=== PATIENT | female | born 1990 | race Caucasian/White ===

== ENCOUNTER 2016-09-29 16:08 | Outpatient (CLI) | payer MEDICAID ==
[~2016-09-29] VITALS: Ht 162.6 cm; Wt 111.1 kg
[~2016-09-29 16:08] MED LIST: PREN-39 PO
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
[2016-09-29 18:25] LABS: ADD SCAN DIFF NO
[2016-09-29 18:27] LABS: ABNORMAL IP MESSAGE 1; EOSINOPHILS # 0.1 10^3/ul (0.0-0.5); EOSINOPHILS % 0.5 % (0.0-7.0); HEMATOCRIT 29.4 % (37.0-47.0); HEMOGLOBIN 9.1 g/dl (12.0-16.0); LYMPHOCYTES % 20.6 % (15.0-51.0); MEAN CORPUSCULAR VOLUME 80.8 fl (82.0-101.0); MEAN PLATELET VOLUME 13.1 fl (7.4-10.4); MONOCYTE # 0.6 10^3/ul (0.3-0.9); MONOCYTES % 5.7 % (0.0-11.0); NEUTROPHILS % 72.6 % (39.0-77.0); PLATELET COUNT 171 10^3/UL (140-415); RED BLOOD COUNT 3.64 10^6/ul (4.20-5.40); RED CELL DISTRIBUTION WIDTH 13.4 % (11.5-14.5); WHITE BLOOD COUNT 9.6 10^3/ul (4.8-10.8)
== END 2016-09-29 19:45 | disposition home or self-care (01) ==
LOC: OBT 16:08 → L-D 16:09 → OBT 19:45
PROVIDERS: ATTEND Obstetrics & Gynecology
DX: O36.8130 Decreased fetal movements, third trimester, not applicable or unspecified (principal); S39.81XA Other specified injuries of abdomen, initial encounter; X95.01XA Assault by airgun discharge, initial encounter; Z3A.31 31 weeks gestation of pregnancy
CPT/HCPCS: 36415; 76818; 85025; 86850; 86900; 86901; Z7500; G0463

== ENCOUNTER 2016-10-11 13:33 | Outpatient (CLI) | payer MEDICAID ==
[~2016-10-11] VITALS: Ht 162.6 cm; Wt 109.9 kg
[2016-10-11 14:18] VITALS: BP 117/62; PULSE 109; RESP 18
--- NOTE | 2016-10-11 14:45 | RADRPT ---
PROCEDURE: US OB biophysical profile. CLINICAL INDICATION: labor TECHNIQUE: Multiple sonographic images of the pelvis were obtained. The images were reviewed on a PACS workstation. COMPARISON: Obstetrical ultrasound from 09/29/2016 FINDINGS: There is a single viable intrauterine gestation. Cardiac activity is present with 139 beats per min [place]. There is a vertex presentation. The placenta is posterior and fundal. There is no evidence of placental abruption. There is a normal amount of amniotic fluid with an AURORA = 14.1 cm. Biophysical profile: movement 2/2 tone 2/2. breathing 2/2 AUR[place]A 2/2 Total 12/09 RPTAT: AA . IMPRESSION: Normal biophysical profile. Physician Arley Date Time Electronically viewed and signed by Physician Arley on 10/11/2016 14:44 RA/
--- NOTE | 2016-10-11 16:47 | PN ---
Triage Information Weeks of Gestation Patient is 4 para 3 at 34 weeks of gestation presents with leaking fluid : 4 Para: 3 Diabetes: none Hypertention: none Additional information Reports positive movement, no vaginal bleeding, no contractions Objective Vital Signs Date Time Temp Pulse Resp B/P Pulse Ox O2 Delivery O2 Flow Rate FiO2 10/11/16 14:18 98.4 109 18 117/62 96 Room Air Exam heart rate reactive [place] none Results/Medications Results 24 hrs Laboratory Tests Test 10/11/16 14:05 Membranes Rupture NEGATIVE Imaging Results PROCEDURE: US OB biophysical profile. CLINICAL INDICATION: labor TECHNIQUE: Multiple sonographic images of the pelvis were obtained. The images were reviewed on a PACS workstation. COMPARISON: Obstetrical ultrasound from 09/29/2016 FINDINGS: There is a single viable intrauterine gestation. Cardiac activity is present with 139 beats per minute. There is a vertex presentation. The placenta is posterior and fundal. There is no evidence of placental abruption. There is a normal amount of amniotic fluid with an AURORA = 14.1 cm. Biophysical profile: movement 2/2 tone 2/2. breathing 2/2 [place]A 2/2 Total 12/09 RPTAT: AA . IMPRESSION: Normal biophysical profile. 

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
== END 2016-10-11 16:28 | disposition home or self-care (01) ==
LOC: L-D 13:33 → OBT 13:33
PROVIDERS: ATTEND Obstetrics & Gynecology
DX: O42.913 Preterm premature rupture of membranes, unspecified as to length of time between rupture and onset of labor, third trimester (principal); Z3A.35 35 weeks gestation of pregnancy
CPT/HCPCS: 76818; 84112; Z7500; G0463

== ENCOUNTER 2016-11-07 11:51 | Outpatient (CLI) | payer MEDICAID ==
[~2016-11-07] VITALS: Ht 162.6 cm; Wt 112.4 kg
[2016-11-07 12:04] VITALS: Ht 162.6 cm; Wt 112.4 kg
[2016-11-07 12:08] VITALS: BP 126/65; PULSE 94; RESP 18
--- NOTE | 2016-11-07 12:58 | RADRPT ---
PROCEDURE: US OB biophysical profile. CLINICAL INDICATION: evaluation, decreased movement TECHNIQUE: Multiple sonographic images of the pelvis were obtained. The images were reviewed on a PACS workstation. COMPARISON: Obstetrical ultrasound from 10/11/2016 FINDINGS: There is a single viable intrauterine gestation. Cardiac activity is present with 143 beats per min [place]. There is a vertex presentation. The placenta is posterior. There is no evidence of placental abruption. There is a normal amount of amniotic fluid with an AURORA = 15.8 cm. Biophysical profile: movement 2/2 tone 2/2. breathing 2/2 [place] 2/2 Total 12/09 RPTAT: AA . IMPRESSION: Normal biophysical profile. Normal AUR[place]A. Physician Arley Date Time Electronically viewed and signed by Physician Arley on 11/07/2016 12:57 /
--- NOTE | 2016-11-07 14:33 | PN ---
Triage Information Date/Time November 07, 2016 at 1425 Weeks of Gestation 37 weeks 6 days : 4 Para: 3 Diabetes: none Hypertention: none Objective Vital Signs Date Time Temp Pulse Resp B/P Pulse Ox O2 Delivery O2 Flow Rate FiO2 11/07/16 12:08 98.0 94 18 126/65 Room Air Heart Rate: 130's Contractions: >10 Minutes Apart Exam 4 para 237 weeks and 6 chief complaint of contraction 7-10 minutes apart , pelvic exam and external os 1-1/2 cm internal vascular vertex presentation at -2 station, biophysical profile 12/09 AUR[place]A 15.8. Patient given labor instructions discharge home advised return to the hospital when contractions are more regular and stronger or premature rupture of membrane otherwise follow with the clinic JOSE PINK MD Nov 07, 2016 14:33
--- NOTE | 2016-11-07 17:39 | TRIAGE ---
OB Triage Datetime Report Generated by CPN: 11/07/2016 17:39 Datetime: 11/07/2016 13:00 Labor Evaluation Frequency: 2-4 Monitor Mode: External Duration (sec)2399: 50-80 Quality: Moderate Pattern: Normal: <= 5 Contractions in 10 Minutes Resting Tone [place]: Relaxed Heart Rate FHR Baseline Rate: 145 Monitor Mode: External US FHR Baseline Changes: No Baseline Change Variability: Moderate 6-25 bpm Accelerations: 15X15 Decelerations: None Category: Category I Pain Assessment Pain Scale: 5 Pain Presence: Intermittent Pain Type: Contraction; Pressure Pain Location: Abdomen; Back Pain Goal: 0 Pain Relief Measures: Comfort Measures Datetime: 11/07/2016 12:50 Time of Arrival: 11/07/2016 11:45 EGA: 37.6 Arrived By: Ambulatory Arrived From: Home Chief Complaint: Decreased movement and contractions Movement: Present Contractions: Regular Time Contractions Began: 11/07/2016 05:00 Rupture of Membranes: Denies Vaginal Discharge: Denies Recent Sexual Intercouse: Denies Abdominal Trauma: Not Applicable Patient Complaints: Contractions Time Provider Notified: 11/07/2016 12:20 Provider Notified: [facility] Initial Plan: NST, BPP Datetime: 11/07/2016 12:35 Vaginal Exam Dilatation (cms): 0.0 Effacement (%): 0 Station: -3 Exam By: Tash Datetime: 11/07/2016 12:10 Assessment Type: Triage Maternal Assessment Level of Consciousness: Fully Conscious DTR's/Clonus: DTRs 2+; No Clonus Headache: Denies Blurred Vision: No Respiratory Effort: Unlabored; Regular Rhythm; Equal Expansion Breath Sounds, Left: Clear and Equal Breath Sounds, Right: Clear and Equal Nausea/Vomiting: Denies RUQ Epigastric Pain: Denies Lower Extremities Edema: Bilateral Lower Extremities Degree: 1+ Upper Extremities Edema: None Degree: None Facial Edema: None Fall Risk Assessment History of Falling: (0) No Secondary Diagnosis: (0) No Ambulatory Aid: (0) Bedrest/Nurse Assist IV Therapy: (0) No Gait: (0) Normal/Bedrest/Immobile Mental Status: (0) Oriented to Own Ability Fall Score: 0 Fall Risk Score Definition: No Risk: No action required Datetime: 10/11/2016 14:00 Fall Score: 0 Fall Risk Score Definition: No Risk: No action required Datetime: 10/11/2016 13:46 EGA: 34.0 Datetime: 09/29/2016 16:26 EGA: 32.2 Fall Score: 0 Fall Risk Score Definition: No Risk: No action required
== END 2016-11-07 14:20 | disposition home or self-care (01) ==
LOC: OBT 11:51 → L-D 11:52 → OBT 14:20
PROVIDERS: ATTEND Obstetrics & Gynecology
DX: O62.9 Abnormality of forces of labor, unspecified (principal); Z3A.37 37 weeks gestation of pregnancy
CPT/HCPCS: 76818; Z7500; G0463

== ENCOUNTER 2016-11-20 10:56 | Inpatient (IN) | payer MEDICAID ==
[~2016-11-20] VITALS: Ht 162.6 cm; Wt 113.1 kg
[2016-11-20 11:10] VITALS: Ht 162.6 cm; Wt 113.1 kg
[2016-11-20 11:11] VITALS: BP 132/65
--- NOTE | 2016-11-20 13:15 | TRIAGE ---
OB Triage Datetime Report Generated by CPN: 11/20/2016 13:15 Datetime: 11/20/2016 13:05 Vaginal Exam Dilatation (cms): 2.0 Effacement (%): 60 Station: -2 Exam By: S. EWA Datetime: 11/20/2016 12:37 Labor Evaluation Frequency: 3-4 Monitor Mode: External Duration (sec)2399: 30-60 Pattern: Normal: <= 5 Contractions in 10 Minutes Resting Tone [place]: Relaxed Heart Rate FHR Baseline Rate: 145 Monitor Mode: External US Variability: Moderate 6-25 bpm Accelerations: 15X15 Decelerations: None Category: Category I Pain Assessment Pain Scale: 7 Pain Presence: Intermittent Pain Type: Contraction Pain Location: Abdomen Pain Goal: 0 Pain Relief Measures: Comfort Measures Datetime: 11/20/2016 11:15 Stage of : OB Triage Assessment Type: Triage Maternal Assessment Level of Consciousness: Fully Conscious DTR's/Clonus: DTRs 2+; No Clonus Headache: Denies Blurred Vision: No Respiratory Effort: Unlabored; Regular Rhythm; Equal Expansion Breath Sounds, Left: Clear and Equal Breath Sounds, Right: Clear and Equal Nausea/Vomiting: Denies RUQ Epigastric Pain: Denies Lower Extremities Edema: None Degree: None Degree: None Facial Edema: None Temperature Route: Oral Fall Risk Assessment History of Falling: (0) No Secondary Diagnosis: (0) No Ambulatory Aid: (0) Bedrest/Nurse Assist IV Therapy: (0) No Gait: (0) Normal/Bedrest/Immobile Mental Status: (0) Oriented to Own Ability Fall Score: 0 Fall Risk Score Definition: No Risk: No action required Monitor Mode: External Heart Rate FHR Baseline Rate: 155 Monitor Mode: External US Variability: Moderate 6-25 bpm Accelerations: 15X15 Decelerations: None Category: Category I Pain Assessment Pain Scale: 7 Pain Presence: Intermittent Pain Type: Contraction Pain Location: Abdomen Pain Goal: 0 Pain Relief Measures: Comfort Measures Vaginal Exam Dilatation (cms): 0.5 Effacement (%): 60 Station: -3 Exam By: Erik MCNEIL RN Membrane Status: Intact Datetime: 11/20/2016 11:14 Time of Arrival: 11/20/2016 10:54 EGA: 39.5 Arrived By: Wheelchair Arrived From: Home Chief Complaint: UC'S Movement: Present Contractions: Regular Time Contractions Began: 11/19/2016 20:00 Contractions: Q 5 TO 6 Rupture of Membranes: Denies Vaginal Bleeding: None Vaginal Discharge: Denies Recent Sexual Intercouse: Denies Abdominal Trauma: Not Applicable Patient Complaints: Contractions Time Provider Notified: 11/20/2016 11:24 Provider Notified: DR. PINK Initial Plan: EFMX2 VE, CALL ,MED Datetime: 11/07/2016 12:50 EGA: 37.6 Datetime: 11/07/2016 12:10 Fall Score: 0 Fall Risk Score Definition: No Risk: No action required Datetime: 10/11/2016 14:00 Fall Score: 0 Fall Risk Score Definition: No Risk: No action required Datetime: 10/11/2016 13:46 EGA: 34.0 Datetime: 09/29/2016 16:26 EGA: 32.2 Fall Score: 0 Fall Risk Score Definition: No Risk: No action required
[2016-11-20] MEDS ORDERED: LIDOCAINE 1% (MPF) 30 ML INJ INJ PRN (13:30)
[2016-11-20] MEDS ORDERED: CARBOPROST 250 MCG INJ IM PRN (13:30)
[2016-11-20] MEDS ORDERED: BUTORPHANOL 2 MG INJ IV PRN (13:30)
[2016-11-20] MEDS ORDERED: OXYTOCIN 30 UNITS/LR 500 ML IV SCH ×3 (13:30→20:30)
[2016-11-20] MEDS ORDERED: OXYTOCIN 30 UNITS/LR 500 ML IV PRN (13:30)
[2016-11-20] MEDS ORDERED: MISOPROSTOL 200 MCG TAB PR PRN (13:30)
[2016-11-20] MEDS ORDERED: METHYLERGONOVINE 0.2 MG INJ IM PRN (13:30)
[2016-11-20] MEDS ORDERED: AMPICILLIN 2 GM/NS (PMX) 100 ML ONE (13:48)
[2016-11-20 13:52] LABS: ADD SCAN DIFF NO
[2016-11-20] MEDS: LACTATED RINGER'S 1,000 ML IV SCH ×2 (13:55→18:51)
[2016-11-20 13:56] LABS: ABNORMAL IP MESSAGE 1; BASOPHILS % 0.2 % (0.0-2.0); EOSINOPHILS # 0.1 10^3/ul (0.0-0.5); EOSINOPHILS % 0.5 % (0.0-7.0); HEMATOCRIT 32.4 % (37.0-47.0); HEMOGLOBIN 9.5 g/dl (12.0-16.0); LYMPHOCYTES # 2.3 10^3/ul (0.8-2.9); LYMPHOCYTES % 22.2 % (15.0-51.0); MEAN CORPUSCULAR HGB CONC 29.3 g/dl (32.0-37.0); MEAN PLATELET VOLUME 13.5 fl (7.4-10.4); MONOCYTE # 0.6 10^3/ul (0.3-0.9); MONOCYTES % 5.6 % (0.0-11.0); NEUTROPHIL # 7.4 10^3/ul (1.6-7.5); NEUTROPHILS % 70.8 % (39.0-77.0); PLATELET COUNT 202 10^3/UL (140-415); RED BLOOD COUNT 4.32 10^6/ul (4.20-5.40); RED CELL DISTRIBUTION WIDTH 15.2 % (11.5-14.5); WHITE BLOOD COUNT 10.4 10^3/ul (4.8-10.8)
[2016-11-20] MEDS ORDERED: AMPICILLIN 2 GM/NS (PMX) 100 ML IV ONE (14:00)
[2016-11-20 14:59] LABS: INR 1.05; PROTIME 13.7 Sec (12.2-14.2); PT RATIO 1.1
[2016-11-20 15:01] LABS: PARTIAL THROMBOPLASTIN TIME 26.9 Sec (25.0-35.0)
--- NOTE | 2016-11-20 17:54 | HP ---
Date/Time of Note Date/Time of Note DATE: 11/20/16 TIME: 17:49 OB - History Hx of Present Free Text/Dictation 26 years old female 4 para 3 EDC November 22, 2016 admitted to [facility] in early labor, pelvic examination on admission cervical dilatation at 2 cm 70% effacement vertex at -3 station contractions every 2-4 minutes with moderate quality, will continue expecting management for delivery Chief Complaint: Labor pain Estimated Due Date: Nov 22, 2016 : 4 Para: 3 Care: Good Care Obstetrical Complications: None Medical Complications: None Past Family/Social History * Past Medical, Surgical, Family and Obstetric Histories reviewed from chart. Rubella: immune RPR/VDRL: Negative GBS Status: Negative HBsAG: Negative OB Admission Exam Vital Signs Vital Signs Vital Signs Date Time Temp Pulse Resp B/P Pulse Ox O2 Delivery O2 Flow Rate FiO2 11/20/16 11:11 97.6 132/65 Room Air Physical Exam HEENT: WNL Heart: Rhythm Normal Lungs: Clear, Equal Abdomen: WNL Extremities: Normal Reflexes: Normal Cervical Dilatation: 2cm Effacement: 75% Station: -2 Heart Rate: 130's Accelerations: Accelerations Present Varibility: Moderate Intensity: Moderate Last 72 hours Lab Results CBC & BMP 11/20/16 13:45 JOSE PINK MD Nov 20, 2016 17:54
[2016-11-20] MEDS: AMPICILLIN 1 GM/NS (PMX) 50 ML IV SCH ×2 (18:02→21:43)
[2016-11-21] MEDS: LACTATED RINGER'S 1,000 ML IV SCH ×3 (00:06→05:31)
[2016-11-21] MEDS ORDERED: FENTAnyl 2MCG/ML-ROPIV 0.2% 100 ML ONE (00:38)
[2016-11-21] MEDS: AMPICILLIN 1 GM/NS (PMX) 50 ML IV SCH ×2 (01:50→05:31)
[2016-11-21] MEDS ORDERED: NALOXONE (0.4 MG/ML) INJ IV PRN (02:30)
[2016-11-21] MEDS ORDERED: FENTAnyl 2MCG/ML-ROPIV 0.2% 100 ML BAG EPI SCH (02:30)
[2016-11-21] MEDS ORDERED: LACTATED RINGER'S 1,000 ML IV* SCH (09:04)
--- NOTE | 2016-11-21 09:11 | LDN ---
Date/Time of Note Date/Time of Note DATE: 11/21/16 TIME: 09:08 Delivery Summary Normal spontaneous vaginal delivery of a baby boy from OA position shoulders delivered without any difficulties rest of the baby's body followed placenta spontaneous expulsion inspected complete estimated blood loss 250 mL vaginal perineal inspection no laceration noted Weeks of Gestation 39 weeks5/7 days Placenta Delivered: Spontaneously Meconium: none Episiotomy: No Laceration repair: None Anesthesia type: None Estimated blood loss: 250 Sponge & Needle done & correct: Yes All needle counts correct: Yes Any foreign bodies felt in the: No Problems: Infant Delivery Information Sex Sex: male Apgars 1 Minute: 9 5 Minute: 9 Suctioning Nose & mouth suctioned at imtiaz: Yes Delee suction performed: No Umbilical Cord Umbilical cord with: 3 Vessels Cord presentations: nuchal cord Nuchal cord present X: 1 Cord Blood was obtained: Yes JOSE PINK MD Nov 21, 2016 09:11
[2016-11-21] MEDS ORDERED: METHYLERGONOVINE 0.2 MG INJ IM PRN (09:30)
[2016-11-21] MEDS ORDERED: CARBOPROST 250 MCG INJ IM PRN (09:30)
[2016-11-21] MEDS ORDERED: MISOPROSTOL 200 MCG TAB PR PRN (09:30)
[2016-11-21] MEDS ORDERED: OXYTOCIN 30 UNITS/LR 500 ML IV PRN (09:30)
[2016-11-21] MEDS ORDERED: ACETAMINOPHEN 325 MG TAB PO PRN (10:00)
[2016-11-21] MEDS ORDERED: OXYCODONE/ASPIRIN (4.88/325) TAB PO PRN (10:00)
[2016-11-21] MEDS ORDERED: BENZOCAINE 20% 56 ML SPRAY TOP PRN (10:00)
[2016-11-21] MEDS ORDERED: DIBUCAINE 1% 30 GM OINT PR PRN (10:00)
[2016-11-21] MEDS ORDERED: ONDANSETRON 4 MG INJ IV PRN (10:00)
[2016-11-21] MEDS ORDERED: WITCH HAZEL/GLYCERIN PAD PR PRN (10:00)
[2016-11-21] MEDS ORDERED: ACETAMINOPHEN/CODEINE #3 TAB PO PRN ×2 (10:00)
[2016-11-21] MEDS ORDERED: LANOLIN 7 GM TUBE TOP PRN (10:00)
[2016-11-21 10:30] VITALS: BP 128/69; PULSE 68; RESP 18
[2016-11-21] MEDS: IBUPROFEN 600 MG TAB PO SCH ×3 (11:20→23:51)
[2016-11-21] MEDS: OXYCODONE/ASPIRIN (4.88/325) TAB PO PRN ×2 (12:20→21:31)
[2016-11-21] MEDS: OXYTOCIN 30 UNITS/LR 500 ML IV SCH ×2 (13:37→22:03)
[2016-11-21 16:00] VITALS: BP 123/84; PULSE 76; RESP 16
[2016-11-21 20:15] VITALS: BP 120/66; PULSE 97; RESP 18
[2016-11-21] MEDS: SENNA/DOCUSATE NA (8.6MG/50MG) TAB PO SCH (21:31)
[2016-11-22] MEDS: OXYCODONE/ASPIRIN (4.88/325) TAB PO PRN (03:41)
[2016-11-22 04:57] VITALS: BP 117/63; PULSE 88; RESP 18
[2016-11-22] MEDS: IBUPROFEN 600 MG TAB PO SCH ×4 (05:43→23:56)
[2016-11-22 07:30] VITALS: BP 138/63; PULSE 82; RESP 18
[2016-11-22] MEDS: SENNA/DOCUSATE NA (8.6MG/50MG) TAB PO SCH ×2 (08:15→21:07)
[2016-11-22 09:57] LABS: ABNORMAL IP MESSAGE 1; BASOPHILS % 0.1 % (0.0-2.0); EOSINOPHILS # 0.1 10^3/ul (0.0-0.5); EOSINOPHILS % 0.7 % (0.0-7.0); HEMATOCRIT 28.2 % (37.0-47.0); HEMOGLOBIN 8.4 g/dl (12.0-16.0); LYMPHOCYTES # 2.7 10^3/ul (0.8-2.9); LYMPHOCYTES % 31.6 % (15.0-51.0); MEAN CORPUSCULAR HEMOGLOBIN 22.3 pg (29.0-33.0); MEAN CORPUSCULAR HGB CONC 29.8 g/dl (32.0-37.0); MEAN CORPUSCULAR VOLUME 74.8 fl (82.0-101.0); MEAN PLATELET VOLUME 13.1 fl (7.4-10.4); MONOCYTE # 0.5 10^3/ul (0.3-0.9); MONOCYTES % 5.8 % (0.0-11.0); NEUTROPHIL # 5.2 10^3/ul (1.6-7.5); NEUTROPHILS % 61.1 % (39.0-77.0); PLATELET COUNT 161 10^3/UL (140-415); RED BLOOD COUNT 3.77 10^6/ul (4.20-5.40); RED CELL DISTRIBUTION WIDTH 15.2 % (11.5-14.5); WHITE BLOOD COUNT 8.6 10^3/ul (4.8-10.8)
[2016-11-22 10:01] LABS: POSITIVE DIFF @See below
--- NOTE | 2016-11-22 10:39 | PN ---
Date/Time of Note Date/Time of Note DATE: 11/22/16 TIME: 10:38 OB Subjective Subjective Subjective day 1 Afebrile vital signs are stable abdomen soft uterus lochia moderate extremity normal ambulation encouraged patient's hemoglobin is she feels stable not lightheaded during the ambulation JOSE PINK MD Nov 22, 2016 10:39
[2016-11-22 15:55] VITALS: BP 124/67; PULSE 87; RESP 18
[2016-11-22 20:30] VITALS: BP 129/72; PULSE 95; RESP 19
[2016-11-23 04:00] VITALS: BP 114/70; PULSE 76; RESP 17
[2016-11-23] MEDS: IBUPROFEN 600 MG TAB PO SCH ×2 (05:22→11:43)
[2016-11-23 07:30] VITALS: BP 118/68; PULSE 77; RESP 18
[2016-11-23] MEDS: SENNA/DOCUSATE NA (8.6MG/50MG) TAB PO SCH (08:37)
[2016-11-23] MEDS ORDERED: MEASLES,MUMPS,RUBELLA VACCINE INJ SC* ONE (09:00)
--- NOTE | 2016-11-23 12:49 | PD.PPDC ---
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
--- NOTE | 2016-11-23 12:51 | DS ---
Date/Time of Note Date/Time of Note DATE: 11/23/16 TIME: 12:49 Discharge Summary Admission/Discharge Info Admit Date/Time Nov 20, 2016 at 13:23 Discharge Date/Time November 23, 2016 at 1245 Discharge Diagnosis Day 2 post normal vaginal delivery Procedures Normal spontaneous vaginal delivery Hx of Present Illness Term Hospital Course Satisfactory uneventful Home Meds No Active Prescriptions or Reported Meds Follow-up Plan instructions given recommended to make appointment to be seen at the clinic in 2 weeks Primary Care Provider [facility] Time spent on discharge: < 30 minutes JOSE PINK MD Nov 23, 2016 12:51
== END 2016-11-23 13:13 | disposition home or self-care (01) | DRG 775 ==
LOC: OBT 10:56 → L-D 10:57 → OBT 13:20 → L-D 13:23 → PP1 11-21 10:21
PROVIDERS: ADMIT Obstetrics & Gynecology; ATTEND Obstetrics & Gynecology
PROC: 10E0XZZ Delivery of Products of Conception, External Approach (ICD-10-PCS; principal; 2016-11-20)
PROC: 4A1HX4Z Monitoring of Products of Conception, Cardiac Electrical Activity, External Approach (ICD-10-PCS; 2016-11-20)
DX: O99.214 Obesity complicating childbirth (principal); Z68.41 Body mass index [BMI] 40.0-44.9, adult; E66.01 Morbid (severe) obesity due to excess calories; Z3A.39 39 weeks gestation of pregnancy; Z37.0 Single live birth
CPT/HCPCS: 62319; 85025; 85610; 85730; 86592; 86900; 86901; 87340; G0463; J0290; J2590; J3010; J7120